=== PATIENT | female | born 1965 | race Hispanic/Latino ===

== ENCOUNTER 2018-01-23 20:49 | Emergency (ER) | payer MEDICAID ==
[2018-01-23 20:58] VITALS: RESP 17; O2SAT 98
--- NOTE | 2018-01-23 21:21 | ED PDOC ---
HPI: Psych/Substance Abuse Time Seen by Provider: 01/23/18 21:10 Chief Complaint (Nursing): Psychiatric Evaluation Chief Complaint (Provider): crisis eval History Per: Patient History/Exam Limitations: no limitations Additional Complaint(s): 52 y/o female brought in by EMS for crisis eval. Patient states her life is a mess and she has been having suicidal ideations today with a plan to either jump off of her sisters balcony or overdose. Patient states she has not been taking her prescribed psychiatric medications because they make her feel "foggy". Patient admits to drinking half a pint of whiskey today, states she recently got out of detox. Denies homicidal ideations, hallucinations, acute physical complaints. Past Medical History Reviewed: Historical Data, Nursing Documentation, Vital Signs Vital Signs: Last Vital Signs Temp 98.3 F 01/23/18 20:51 Pulse 90 01/23/18 20:51 Resp 17 01/23/18 20:51 BP 128/74 01/23/18 20:51 Pulse Ox 98 01/23/18 20:51 - Medical History PMH: Anxiety, Depression - Family History Family History: States: No Known Family Hx - Living Arrangements Living Arrangements: With Family - Social History Current smoker - smoking cessation education provided: Yes Alcohol: > 2 Drinks/Day Drugs: Denies - Home Medications Home Medications: Ambulatory Orders Medication Instructions Recorded Alprazolam [Xanax] 0.5 mg PO PRN PRN 01/23/18 Folic Acid 1 mg PO DAILY 01/23/18 Gabapentin [Neurontin] 300 mg PO TID 01/23/18 Multivitamin [Daily Miguel] 1 tab PO DAILY 01/23/18 Sertraline [Zoloft] 25 mg PO DAILY 01/23/18 Thiamine Mononitrate [Vitamin B-1] 100 mg PO DAILY 01/23/18 chlordiazePOXIDE [Librium] 25 mg PO PRN PRN 01/23/18 hydrOXYzine HCl [Atarax] 50 mg PO PRN PRN 01/23/18 traZODone [Desyrel] 50 mg PO PRN PRN 01/23/18 - Allergies Allergies/Adverse Reactions: Allergies Allergy/AdvReac Type Severity Reaction Status Date / Time No Known Allergies Allergy Verified 01/23/18 20:58 Review of Systems ROS Statement: Except As Marked, All Systems Reviewed And Found Negative Psych: Positive for: Depression, Suicidal ideation Physical Exam - Reviewed Nursing Documentation Reviewed: Yes Vital Signs Reviewed: Yes - Physical Exam Appears: Positive for: Well, Non-toxic, No Acute Distress Head Exam: Positive for: ATRAUMATIC, NORMAL INSPECTION, NORMOCEPHALIC Skin: Positive for: Normal Color Eye Exam: Positive for: Normal appearance ENT: Positive for: Normal ENT Inspection Cardiovascular/Chest: Positive for: Regular Rate, Rhythm Respiratory: Positive for: Normal Breath Sounds Gastrointestinal/Abdominal: Positive for: Normal Exam Back: Positive for: Normal Inspection Extremity: Positive for: Normal ROM Neurologic/Psych: Positive for: Alert, Oriented (x3) - Laboratory Results Result Diagrams: 01/23/18 21:31 01/23/18 21:31 - ECG O2 Sat by Pulse Oximetry: 98 - Progress ED Course And Treament: -1:1 -cbc -cmp -serum blood alcohol -urine drug screen -urinalysis -crisis eval 23:00 Patient awake, no distress 01/24/18 00:30 Patient sleeping; no distress 2:00 Patient awake, alert, oriented x3. 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 Solomon Disposition - Clinical Impression Clinical Impression: Alcohol-induced mood disorder - Patient ED Disposition Is Patient to be Admitted: No Counseled Patient/Family Regarding: Studies Performed, Diagnosis, Need For Followup - Disposition Disposition: Routine/Home Disposition Time: 04:25 Condition: IMPROVED Additional Instructions: FOR MENTAL HEALTH AND SOCIAL SERVICE FOLLOW UP CONTACT [facility] CRIS[facility] INTERVENTION [facility] [address] [place] [address] MONDAY-MONDAY FROM 9AM-8PM MONDAY AND MONDAY FROM 10AM-6PM FOR SUBSTANCE ABUSE RECOVERY SERVICES CONTACT THE ADDICTION SERVICES HOTLINE OPEN 26/09 Instructions: Alcohol Abuse and Alcoholism (DC)
[2018-01-23 21:35] LABS: BASO # 0.3 K/uL (0.0-0.2); BASO % 1.9 % (0.0-2.0); EOS # 0.4 K/uL (0.0-0.7); HEMOGLOBIN 13.4 g/dL (12.0-16.0); LYMPH % 36.4 % (20.0-40.0); MEAN CELL VOLUME 99.6 fl (81.0-99.0); MEAN CORPUSCULAR HEMOGLOBIN 34.2 pg (27.0-31.0); MEAN CORPUSCULAR HGB CONC 34.4 g/dL (33.0-37.0); MEAN PLATELET VOLUME 7.8 fl (7.2-11.7); MONO # 0.9 K/uL (0.0-0.8); MONO % 6.7 % (0.0-10.0); NEUT # 7.1 K/uL (1.8-7.0); RBC 3.91 Mil/uL (3.80-5.20); RED CELL DISTRIBUTION WIDTH 13.4 % (11.5-14.5); WHITE BLOOD COUNT 13.7 K/uL (4.8-10.8)
[2018-01-23 21:51] LABS: URINE BILIRUBIN NEGATIVE (NEGATIVE); URINE CLARITY CLEAR (Clear); URINE COLOR YELLOW (YELLOW); URINE GLUCOSE (UA) NEG (Normal); URINE LEUKOCYTE ESTERASE TRACE Leu/uL (Negative); URINE PROTEIN NEGATIVE (NEGATIVE); URINE UROBILINOGEN 0.2-1.0 mg/dL (0.2-1.0)
[2018-01-23 21:53] LABS: ALB/GLOB RATIO 1.4 (1.0-2.1); ALBUMIN 4.2 g/dL (3.5-5.0); ALT/SGPT 25 U/L (9-52); AST/SGOT 33 U/L (14-36); BLOOD UREA NITROGEN 22 mg/dl (7-17); CALCIUM 9.2 mg/dL (8.4-10.2); GFR NON-AFRICAN AMERICAN > 60
[2018-01-23 22:02] LABS: BARBITURATES, UR NEGATIVE (NEGATIVE); BENZODIAZEPINES, UR POSITIVE (NEGATIVE); OPIATES, UR NEGATIVE (NEGATIVE); PHENCYCLIDINE, UR NEGATIVE (NEGATIVE); URINE BLOOD SMALL (NEGATIVE)
[2018-01-24 06:49] VITALS: BP 135/81; PULSE 84; TEMP 98.2
== END 2018-01-24 06:30 | disposition home or self-care (01) ==
LOC: H.ER 20:49
DX: F10.94 Alcohol use, unspecified with alcohol-induced mood disorder (principal); F32.9 Major depressive disorder, single episode, unspecified; F17.200 Nicotine dependence, unspecified, uncomplicated